=== PATIENT | female | born 1965 | race Caucasian/White ===

== ENCOUNTER → 2020-07-07 | Outpatient (CLI) | payer OTHER ==
[2020-07-08 11:41] LABS: Candida species (DNA Probe) Negative (NEGATIVE); G. vaginalis (DNA Probe) Positive (NEGATIVE); T. vaginalis (DNA Probe) Negative (NEGATIVE)
[2020-07-08 15:09] LABS: HPV 16 Negative (Negative); HPV 18 Negative (Negative); HPV OTHER HR TYPES Negative (Negative)
== END | disposition home or self-care (01) ==
LOC: LAB 09:15 → LAB SHORT 09:15
PROVIDERS: Obstetrics & Gynecology
DX: Z01.419 Encounter for gynecological examination (general) (routine) without abnormal findings (principal); N76.0 Acute vaginitis
CPT/HCPCS: 87480; 87510; 87624; 87660; G0123

== ENCOUNTER → 2021-01-31 | Outpatient (CLI) | payer OTHER ==
[2021-02-01 11:22] LABS: Candida species (DNA Probe) Negative (NEGATIVE); G. vaginalis (DNA Probe) Positive (NEGATIVE); T. vaginalis (DNA Probe) Negative (NEGATIVE)
== END ==
LOC: PLD 15:42 → LAB SHORT 15:42
PROVIDERS: Obstetrics & Gynecology
DX: R10.2 Pelvic and perineal pain (principal)
CPT/HCPCS: 87070; 87205; 87480; 87510; 87660

== ENCOUNTER 2023-08-30 13:44 | Observation (INO) | payer OTHER ==
[~2023-08-30] VITALS: Ht 167.6 cm; Wt 118.9 kg
[2023-08-30 14:56] LABS: BASOPHILS ABSOLUTE AUTO 0.03 K/mm3 (0.00-0.23); BASOPHILS PERCENT AUTO 0 % (0-2); EOSINOPHILS ABSOLUTE AUTO 0.04 K/mm3 (0.00-0.68); EOSINOPHILS PERCENT AUTO 0 % (0-6); Hematocrit 42.9 % (33.0-51.0); IMMATURE GRAN ABSOLUTE AUTO 0.04 K/mm3 (0.00-0.10); IMMATURE GRAN PERCENT AUTO 0 % (0-1); LYMPHOCYTES ABSOLUTE AUTO 1.17 K/mm3 (0.84-5.20); LYMPHOCYTES PERCENT AUTO 13 % (21-46); MONOCYTES ABSOLUTE AUTO 0.48 K/mm3 (0.16-1.47); MONOCYTES PERCENT AUTO 5 % (4-13); Mean Corpuscular HGB 28.6 pg (26.0-34.0); Mean Corpuscular HGB Conc 32.6 g/dL (31.5-36.5); Mean Corpuscular Volume 88 fL (80-100); Mean Platelet Volume 9.4 fL (9.1-12.4); NEUTROPHILS ABSOLUTE AUTO 7.44 K/mm3 (1.96-9.15); NEUTROPHILS PERCENT AUTO 81 % (41-73); Platelet Count 434 K/mm3 (150-400); RDW Coefficient Variation 12.9 % (11.7-14.2); RDW Standard Deviation 41.4 fL (35.1-46.3)
[2023-08-30 15:24] LABS: Albumin/Globulin Ratio 0.9 (0.8-1.8); Bilirubin, Total 0.3 mg/dL (0.1-1.0); Bun/Creatinine Ratio 14.3 (12.0-20.0); Calcium, Blood 9.5 mg/dL (8.5-10.1); Creatinine, Blood 0.77 mg/dL (0.40-1.00); Globulin, Blood 4.4 g/dL (2.2-4.0); Potassium, Blood 4.5 mmol/L (3.5-5.5); Total Protein, Blood 8.4 g/dL (6.4-8.2)
[2023-08-30] MEDS ORDERED: LISI20 PO (15:51)
[2023-08-30] MEDS ORDERED: MELO7.5 PO (15:51)
[2023-08-30] MEDS ORDERED: Cyclobenzaprine5 MG PO (15:52)
[2023-08-30] MEDS ORDERED: TRAM50 PO (15:52)
[2023-08-31 05:34] VITALS: BP 140/76
[2023-08-31 07:15] VITALS: BP 177/86
--- NOTE | 2023-08-31 09:00 | NUR ---
pt a/ox4, pleasant and cooperative with care, follows commands well, denies pain at this time, lungs are clear t/o, resp even and unlabored, no cough noted, hrr, murmur noted, tele in place running sb to sr, no edema noted, ppp+2, cap refill<3 sec, vs stable, afebrile, piv site is clear and patent, btx4, abd flat soft nontender, voids without diff, skin c/w/d, maew, up ad [place] in room, doris, call light in reach.
[2023-08-31 13:03] VITALS: BP 147/81
[2023-08-31 14:57] VITALS: BP 139/83
--- NOTE | 2023-08-31 16:22 | NUR ---
pt has been discharged to home, she will get joyce patch as out pt, script given, [facility], new medication was faxed to [facility], she understands not to drive or put herself in any situations that would be a problem if she has an episode of syncope, iv removed intact, went over discharge instructions. left via ambulation with digital asset coordinator in attendence.
== END 2023-08-31 16:03 | disposition home or self-care (01) ==
LOC: ER 13:44 → MEDS 13:45
PROVIDERS: Physician Assistant; ADMIT Internal Medicine
DX: R55 Syncope and collapse (principal); I65.23 Occlusion and stenosis of bilateral carotid arteries; I10 Essential (primary) hypertension; E78.5 Hyperlipidemia, unspecified; R73.03 Prediabetes; E66.01 Morbid (severe) obesity due to excess calories
CPT/HCPCS: 71046; 71260; 80053; 83735; 83880; 84484; 85025; 85379; 93005; 93010; 93306; 93880; 99285-25; A9270; G0378; J7030; Q9967

== ENCOUNTER 2023-09-29 14:40 | Emergency (ER) | payer OTHER ==
[~2023-09-29] VITALS: Ht 167.6 cm; Wt 117.9 kg
[~2023-09-29 14:40] MED LIST: Cyclobenzaprine5 MG PO; MELO7.5 PO; TRAM50 PO; Zestril30 MG PO
[2023-09-29 15:06] LABS: BASOPHILS ABSOLUTE AUTO 0.03 K/mm3 (0.00-0.23); BASOPHILS PERCENT AUTO 0 % (0-2); EOSINOPHILS ABSOLUTE AUTO 0.09 K/mm3 (0.00-0.68); EOSINOPHILS PERCENT AUTO 1 % (0-6); Hematocrit 40.8 % (33.0-51.0); Hemoglobin 13.3 g/dL (11.5-16.0); IMMATURE GRAN ABSOLUTE AUTO 0.05 K/mm3 (0.00-0.10); IMMATURE GRAN PERCENT AUTO 1 % (0-1); LYMPHOCYTES ABSOLUTE AUTO 1.83 K/mm3 (0.84-5.20); LYMPHOCYTES PERCENT AUTO 21 % (21-46); MONOCYTES ABSOLUTE AUTO 0.63 K/mm3 (0.16-1.47); MONOCYTES PERCENT AUTO 7 % (4-13); Mean Corpuscular HGB 28.7 pg (26.0-34.0); Mean Corpuscular HGB Conc 32.6 g/dL (31.5-36.5); Mean Corpuscular Volume 88 fL (80-100); NEUTROPHILS ABSOLUTE AUTO 5.93 K/mm3 (1.96-9.15); NEUTROPHILS PERCENT AUTO 69 % (41-73); Platelet Count 332 K/mm3 (150-400); RDW Coefficient Variation 13.2 % (11.7-14.2); RDW Standard Deviation 42.5 fL (35.1-46.3); Red Blood Cell Count 4.64 M/mm3 (3.80-5.20); White Blood Cell Count 8.56 K/mm3 (4.00-11.30)
[2023-09-29 16:10] LABS: Albumin, Blood 3.5 g/dL (3.4-5.0); Albumin/Globulin Ratio 0.9 (0.8-1.8); Bilirubin, Total 0.3 mg/dL (0.1-1.0); Bun/Creatinine Ratio 23.5 (12.0-20.0); Calcium, Blood 8.4 mg/dL (8.5-10.1); Creatinine, Blood 0.68 mg/dL (0.40-1.00); Globulin, Blood 3.7 g/dL (2.2-4.0); Potassium, Blood 3.6 mmol/L (3.5-5.5); Total Protein, Blood 7.2 g/dL (6.4-8.2)
[2023-09-29 17:07] VITALS: BP 137/76
== END 2023-09-29 17:05 | disposition home or self-care (01) ==
LOC: ER 14:40
PROVIDERS: Emergency Medicine
DX: R55 Syncope and collapse (principal); R07.9 Chest pain, unspecified; I10 Essential (primary) hypertension; M10.9 Gout, unspecified; E78.5 Hyperlipidemia, unspecified; Z79.899 Other long term (current) drug therapy; Z88.2 Allergy status to sulfonamides
CPT/HCPCS: 71045; 80053; 84484; 85025; 93005; 93010; 99285-25

== ENCOUNTER 2023-10-14 10:05 | Inpatient (IN) | payer SELFPAY ==
[~2023-10-14] VITALS: Ht 167.6 cm; Wt 119.6 kg
[2023-10-14] MEDS ORDERED: ASPI81CH PO (10:35)
[2023-10-14 11:11] LABS: BASOPHILS ABSOLUTE AUTO 0.02 K/mm3 (0.00-0.23); BASOPHILS PERCENT AUTO 0 % (0-2); EOSINOPHILS ABSOLUTE AUTO 0.08 K/mm3 (0.00-0.68); EOSINOPHILS PERCENT AUTO 1 % (0-6); Hematocrit 45.4 % (33.0-51.0); Hemoglobin 14.8 g/dL (11.5-16.0); IMMATURE GRAN ABSOLUTE AUTO 0.02 K/mm3 (0.00-0.10); IMMATURE GRAN PERCENT AUTO 0 % (0-1); LYMPHOCYTES ABSOLUTE AUTO 1.28 K/mm3 (0.84-5.20); LYMPHOCYTES PERCENT AUTO 15 % (21-46); MONOCYTES ABSOLUTE AUTO 0.49 K/mm3 (0.16-1.47); MONOCYTES PERCENT AUTO 6 % (4-13); Mean Corpuscular HGB 28.8 pg (26.0-34.0); Mean Corpuscular HGB Conc 32.6 g/dL (31.5-36.5); Mean Corpuscular Volume 89 fL (80-100); Mean Platelet Volume 9.5 fL (9.1-12.4); NEUTROPHILS PERCENT AUTO 78 % (41-73); Platelet Count 385 K/mm3 (150-400); RDW Coefficient Variation 13.1 % (11.7-14.2); Red Blood Cell Count 5.13 M/mm3 (3.80-5.20); White Blood Cell Count 8.59 K/mm3 (4.00-11.30)
[2023-10-14 11:29] LABS: Albumin/Globulin Ratio 0.9 (0.8-1.8); Bilirubin, Total 0.3 mg/dL (0.1-1.0); Bun/Creatinine Ratio 20.3 (12.0-20.0); Calcium, Blood 9.5 mg/dL (8.5-10.1); Creatinine, Blood 0.64 mg/dL (0.40-1.00); Globulin, Blood 4.4 g/dL (2.2-4.0); Potassium, Blood 4.2 mmol/L (3.5-5.5); Total Protein, Blood 8.4 g/dL (6.4-8.2)
[2023-10-15] VITALS (9 sets, daily range): BP systolic 103–149; BP diastolic 57–80
--- NOTE | 2023-10-15 05:47 | NUR ---
SHIFT SUMMARY: PT ADMITTED FROM ED INTO ROOM PCU 17 AT 1999 LAST NIGHT. A&OX4. ABLE TO AMBULATE INDEPENDENTLY INTO ROOM. DENIES ANY DIZZIENESS WHEN UP. HR SINUS IVETTE IN 50'S, DOPPING INTO 30'S AT TIMES WHEN SLEEPING. NO PAUSES NOTED. ASYMPTOMATIC. BP STABE, SEE PT RECORD. O2 SATS > 90% ON RA, PLACED ON 2 LPM WHILE SLEEPING DUE TO DROPPING TO 83% FOR SEVERAL APPROXIMATELY 15 SECONDS BEFORE INCREASING AGAIN INTO 90%. PT DENIES DIAGNOSIS FO SLEEP APNEA BUT REPORTS SHE DOES SNORE WHEN SLEEPING. FLUIDS INFUSING ORDERED. VOIDING CLEAR, YELLOW URINE WITHOUT DIFFICULTY. CALL LIGHT IN REACH. BED IN LOW POSITION.
--- NOTE | 2023-10-15 10:17 | NUR ---
PT CURRENTLY IN THE COMPENSATION COORDINATOR AT THIS TIME FOR PACEMAKER PLACEMENT.
--- NOTE | 2023-10-15 18:28 | NUR ---
PT SUMMARY: PT POST PACER PLACEMENT ON LEFT UPPER CHEST. SITE DRESSING CDI, KEPT ICE SINCE PT CAME BACK IN THE ROOM VITALS HRR PACED/SR 60-70'S, SBP 120-150'S, SATS ABOVE 95% ON RA, AFEBRILE. PT HAS SOME CHEST SORENESS POST PROCEDURE PAIN RELIEVED WITH TYLENOL AND ICE. PT TOLERATING DIET, NS RUNNING AT 100MLS/HR CURRENTLY RECEIVING 2ND DOSE OF IV ABO. PLAN TO DC IN AM IF STABLE AND NO ISSUES. PT HAS BEEN AMBULATING TO THE BATHROOM 1PA. SLING ON LEFT ARM INTACT, PT WAS GIVEN AND POST PACER INSTRUCTION SHEET ALSO DISCUSSED WITH DR VILLEGAS. PACER INTERROGATION IN AM. PT CALLS APPROPRIATELY, WILL REPORT TO ONCOMING SHIFT
[2023-10-16 03:00] VITALS: BP 128/68
--- NOTE | 2023-10-16 05:06 | NUR ---
END OF SHIFT NOTE: NO ACUTE EVENTS OVERNIGHT. PT REMAINS ALERT, ORIENTED X4. ABLE TO CALL APPROPRIATELY AND COMMUNICATE NEEDS W/ STAFF. VSS. HR 60'S, PACED. SBP 120-130'S, MAP >65. PT DENIES CHEST PAIN/PRESSURE. SPO2 >93% ON RA; OCCASIONAL APNEIC EPISODES OVERNIGHT W/ DESATS INTO 70'S, 2L O2 APPLIED W/ QUICK RECOVERY BACK TO RA. AFEBRILE. LEFT CHEST PACER SITE C/D/I, NO BLEEDING, BRUISING, OR HEMATOMA FORMATION. PAIN MANAGED W/ TYLENOL OVERNIGHT, ICE PACK ON SITE. L ARM SLING IN PLACE. PT DECLINED CONTINUOUS FLUIDS ORDERED PER EMAR, REPORTS ADEQUATE PO INTAKE AND STATES "I DON T WANT TO BE UP PEEING ALL NIGHT." AMBULATING TO BATHROOM W/ 1P SBA. EDUCATED PT ON POST-PACER INSTRUCTIONS AND GUIDELINES, EDUCATION SHEET AT BEDSIDE. PACER INTERROGATION PLANNED FOR THIS AM. NO OTHER NEEDS AT THIS TIME. PT RESTING IN BED, CALL LIGHT WITHIN REACH. WILL REPORT TO ONCOMING RN.
[2023-10-16 07:37] VITALS: BP 124/63
[2023-10-16] MEDS ORDERED: CEPH500 PO (10:18)
--- NOTE | 2023-10-16 12:00 | NUR ---
PT DISCHARGE TO HOME TODAY WITH DISCHARGE ORDERS, PRESCRIPTION SENT TO [facility]. PT PROVIDED SCHEDULED APPTS FOR CARDIOLOGY, WOUND AND PACEMAKER APPT. PT RECEIVED FIRST DOSE OF ABO PO KEFLEX 1000MG. POST PACEMAKER INSTRUCTIONS PROVIDED WELL. PT COMPLIANT WITH LEFT ARM SLING. DRESSING WAS CHANGED BY PROVIDER PRIOR TO PT DISCHARGING. SITE CDI. ALL BELONGINGS SENT WITHT THE PT, VITALS HAS BEEN STABLE. ASSISTED VIA WHEELCHAIR FOR DISCHARGE SON PROVIDED TRASNPORTATION FOR THE PT
== END 2023-10-16 10:30 | disposition home or self-care (01) | DRG 244 ==
LOC: ER 10:05 → PCU 10:06 → ER 13:16 → PCU 20:02
PROVIDERS: Physician Assistant; ADMIT Internal Medicine
PROC: 0JH606Z Insertion of Pacemaker, Dual Chamber into Chest Subcutaneous Tissue and Fascia, Open Approach (ICD-10-PCS; principal; 2023-10-15)
PROC: 02H63JZ Insertion of Pacemaker Lead into Right Atrium, Percutaneous Approach (ICD-10-PCS; 2023-10-15)
PROC: 02HK3JZ Insertion of Pacemaker Lead into Right Ventricle, Percutaneous Approach (ICD-10-PCS; 2023-10-15)
DX: I49.5 Sick sinus syndrome (principal); I25.10 Atherosclerotic heart disease of native coronary artery without angina pectoris; E78.5 Hyperlipidemia, unspecified; I71.21 Aneurysm of the ascending aorta, without rupture; I45.10 Unspecified right bundle-branch block; M19.90 Unspecified osteoarthritis, unspecified site; I10 Essential (primary) hypertension; I45.5 Other specified heart block; I65.22 Occlusion and stenosis of left carotid artery; Z88.2 Allergy status to sulfonamides; Z79.811 Long term (current) use of aromatase inhibitors; Z90.89 Acquired absence of other organs; Z96.659 Presence of unspecified artificial knee joint; Z79.82 Long term (current) use of aspirin; Z79.899 Other long term (current) drug therapy
CPT/HCPCS: 33208; 71045; 76937; 80053; 83690; 84484; 85025; 93005; 93010; 99152; 99153; 99284-25; A9270; C1785; C1894; C1898; G0378; J0690; J1644; J2250; J3010; J7030; J7040